=== PATIENT | male | born 1975 | race Caucasian/White ===

== ENCOUNTER 2024-08-27 16:46 | Emergency (ER) | payer OTHER ==
[~2024-08-27] VITALS: Ht 175.3 cm; Wt 99.8 kg
[~2024-08-27 16:46] MED LIST: xarelto PO
[2024-08-27] MEDS ORDERED: NS 1,000 ML IV SCH ×2 (17:05→21:10)
[2024-08-27 17:19] LABS: Source, Urine Clean Catch
[2024-08-27 17:23] LABS: Appearance, Urine Clear (Clear); Bilirubin, Urine Neg (Neg); Blood, Urine 1+ (Neg); Color, Urine Yellow (P-Yellow); Glucose Qualitative, Urine Neg (Neg); Ketones, Urine Neg (Neg); Leukocyte Esterase, Urine Neg (Neg); Nitrite, Urine Neg (Neg); Protein, Urine Neg (Neg); Urobilinogen, Urine NORM (Normal)
[2024-08-27 17:44] LABS: Bacteria Rare /hpf; Mucus Light (0-Heavy); Squamous Epithelial Cells Not Seen /hpf (Few); White Blood Cells, Urine 0-2 /hpf (0-5)
[2024-08-27 19:02] LABS: BASOPHILS ABSOLUTE AUTO 0.08 K/mm3 (0.00-0.23); BASOPHILS PERCENT AUTO 1 % (0-2); EOSINOPHILS PERCENT AUTO 0 % (0-6); Hematocrit 47.3 % (37.0-53.0); IMMATURE GRAN ABSOLUTE AUTO 0.05 K/mm3 (0.00-0.10); IMMATURE GRAN PERCENT AUTO 0 % (0-1); LYMPHOCYTES ABSOLUTE AUTO 2.27 K/mm3 (0.84-5.20); LYMPHOCYTES PERCENT AUTO 15 % (21-46); MONOCYTES ABSOLUTE AUTO 1.31 K/mm3 (0.16-1.47); MONOCYTES PERCENT AUTO 8 % (4-13); Mean Corpuscular HGB 29.2 pg (26.0-34.0); Mean Corpuscular HGB Conc 33.8 g/dL (31.5-36.5); Mean Corpuscular Volume 86 fL (80-100); Mean Platelet Volume 9.5 fL (9.1-12.4); NEUTROPHILS ABSOLUTE AUTO 11.81 K/mm3 (1.96-9.15); NEUTROPHILS PERCENT AUTO 76 % (41-73); Platelet Count 316 K/mm3 (150-400); RDW Coefficient Variation 12.8 % (11.7-14.2); RDW Standard Deviation 40.5 fL (35.1-46.3); Red Blood Cell Count 5.48 M/mm3 (4.30-5.90); White Blood Cell Count 15.52 K/mm3 (4.00-11.30)
[2024-08-27 19:19] LABS: Albumin, Blood 3.9 g/dL (3.4-5.0); Albumin/Globulin Ratio 1.1 (0.8-1.8); Bilirubin, Total 0.8 mg/dL (0.1-1.0); Bun/Creatinine Ratio 10.9 (12.0-20.0); Calcium, Blood 9.2 mg/dL (8.5-10.1); Creatinine, Blood 1.1 mg/dL (0.60-1.20); Globulin, Blood 3.6 g/dL (2.2-4.0); Potassium, Blood 4.1 mmol/L (3.5-5.5); Total Protein, Blood 7.5 g/dL (6.4-8.2)
[2024-08-27] MEDS ORDERED: Ketorolac Tromethamine 15mg Vial IV ONE (21:10)
[2024-08-27] MEDS ORDERED: Ondansetron HCl 2 MG / ML 2ML Vial IV ONE (21:10)
[2024-08-27] MEDS ORDERED: BISA5EC PO (21:56)
[2024-08-27] MEDS ORDERED: AMOCLA875 PO (21:56)
[2024-08-27] MEDS ORDERED: Amoxicillin/Clavulanate K 875 MG Tab PO ONE (22:00)
[2024-08-27 23:17] VITALS: BP 128/78
== END 2024-08-27 23:20 | disposition home or self-care (01) ==
LOC: ER 16:46
PROVIDERS: Student in an Organized Health Care Education/Training Program
DX: K57.32 Diverticulitis of large intestine without perforation or abscess without bleeding (principal)
CPT/HCPCS: 74177; 80053; 81001; 83690; 85025; 96374-59; 96375; 99284-25; A9270; J1885; J2405; J7030; Q9967